=== PATIENT | female | born 1995 | race Caucasian/White ===

== ENCOUNTER 2020-07-29 21:37 | Outpatient (CLI) | payer OTHER ==
[~2020-07-29 21:37] MED LIST: BENTYL 20MG TAB20 MG PO; COLACE 100MG C100 MG PO; KEFLEX CAP 500500 MG PO; REGLAN10 MG PO
== END 2020-07-29 23:15 | disposition home or self-care (01) ==
LOC: GENOP 21:37
DX: O42.913 Preterm premature rupture of membranes, unspecified as to length of time between rupture and onset of labor, third trimester (principal); Z3A.33 33 weeks gestation of pregnancy
CPT/HCPCS: 81001; 83518; G0463

== ENCOUNTER 2020-09-08 13:08 | Outpatient (CLI) | payer OTHER ==
[2020-09-08 14:21] LABS: HEMOGLOBIN 11.2 gm/dl (12.3-15.3); RED BLOOD COUNT 4.03 M/UL (4.00-5.10); WHITE BLOOD COUNT 19.8 K/UL (4.5-11.0)
[2020-09-09] MEDS ORDERED: IBUPROFEN600 MG PO (09:27)
[2020-09-09] MEDS ORDERED: DOCUSATE SODIU250 MG PO (09:27)
[2020-09-09] MEDS ORDERED: HYDROCODONE-AC1 EACH PO (09:27)
== END 2020-09-08 14:45 | disposition home or self-care (01) ==
LOC: GENOP 13:08
PROVIDERS: Obstetrics & Gynecology
DX: Z53.8 Procedure and treatment not carried out for other reasons (principal)
CPT/HCPCS: 36415; 80307; 81001; 85025

== ENCOUNTER 2020-09-09 05:27 | Inpatient (IN) | payer OTHER ==
[2020-09-09] MEDS ORDERED: IBUPROFEN600 MG PO (09:27)
[2020-09-09] MEDS ORDERED: HYDROCODONE-AC1 EACH PO (09:27)
[2020-09-09] MEDS ORDERED: DOCUSATE SODIU250 MG PO (09:27)
[2020-09-10 06:45] LABS: HEMOGLOBIN 8.3 gm/dl (12.3-15.3)
[2020-09-10] MEDS ORDERED: FEROSUL325 MG PO (08:28)
== END 2020-09-10 15:26 | disposition home or self-care (01) | DRG 787 ==
LOC: OB 05:27
PROVIDERS: ADMIT Obstetrics & Gynecology
PROC: 10D00Z1 Extraction of Products of Conception, Low, Open Approach (ICD-10-PCS; principal; 2020-09-09 08:13)
DX: O34.211 Maternal care for low transverse scar from previous cesarean delivery (principal); O23.43 Unspecified infection of urinary tract in pregnancy, third trimester; N85.8 Other specified noninflammatory disorders of uterus; E66.9 Obesity, unspecified; O99.824 Streptococcus B carrier state complicating childbirth; O99.283 Endocrine, nutritional and metabolic diseases complicating pregnancy, third trimester; O99.213 Obesity complicating pregnancy, third trimester; Z3A.39 39 weeks gestation of pregnancy; Z37.0 Single live birth; O99.343 Other mental disorders complicating pregnancy, third trimester; F41.8 Other specified anxiety disorders; Z83.3 Family history of diabetes mellitus; Z80.9 Family history of malignant neoplasm, unspecified; Z82.5 Family history of asthma and other chronic lower respiratory diseases; Z81.8 Family history of other mental and behavioral disorders; Z82.49 Family history of ischemic heart disease and other diseases of the circulatory system; Z82.0 Family history of epilepsy and other diseases of the nervous system; O99.333 Smoking (tobacco) complicating pregnancy, third trimester; F17.200 Nicotine dependence, unspecified, uncomplicated
CPT/HCPCS: 36415; 80307; 81001; 82800; 85014; 85018; 85025; 90715; C9113; J0690; J2274; J2405; J2590; J3010; J7120; U0003